=== PATIENT | male | born 1945 | race Caucasian/White ===

== ENCOUNTER 2016-09-02 08:25 | Emergency (ER) | payer MEDICARE, OTHER ==
[~2016-09-02] VITALS: Ht 188 cm; Wt 118.2 kg
[~2016-09-02 08:25] MED LIST: ASPI-973 PO; UBID100C16 PO
[2016-09-02 08:27] VITALS: BP 116/77; PULSE 106; RESP 16; O2SAT 96
--- NOTE | 2016-09-02 09:09 | ED.REPORT ---
HPI-General Illness Date of Service Sep 02, 2016 ED Provider: Malu Hdz MD A 71 year old male with a history of intestinal blockage, cataracts, and heartburn, presents to the ED complaining of abdominal pain onset last night. Pain is described as swelling and uncomfortable. Associated symptoms include acid reflux. The patient's last episode of intestinal blockage occurred approximately 3 years ago and was relieved with conservative management and no abdominal surgery. The reason for this past blockage was never discovered. Nursing Notes Stated Complaint: INTESTINAL BLOCKAGE Chief Complaint: Male Abdominal Pain Nursing Notes Reviewed: Yes Allergies: Coded Allergies: No Known Drug Allergies (Verified Allergy, Unknown, 09/02/16) Scheduled Aspirin (Aspirin) 81 Mg Tablet 81 MG PO DAILY Ubidecarenone (Coq-10) 100 Mg Capsule 100 MG PO DAILY General Time Seen by MD: 09:07 Chief Complaint Abdominal pain Hx Obtained From: Patient Arrived By: Walk-in Sudden in Onset?: Yes Onset Occurred: 1 day ago (last night) Symptom Duration: Since onset Severity: Current: Moderate Severity: Maximum: Moderate Recent Healthcare: No recent doctor visit Similar Sx Previous: Yes Past Medical History Past Medical History Hx of intestinal blockage. Last episode was approximatley 3 years ago which resolved itself with conservative management. No abdominal surgery performed and no reason for blockage discovered. The patient thinks that they had a CT at this time. high cholesterol. reflux. BPH. Heartburn. Patient takes medication for acid reflux and statin. [facility], he is at the [facility]. Patient reports having a cold three weeks ago. Denies: Diabetes mellitus Past Surgical History none reported. Smoking History Former Smoker Social History Other Social History: Good social support Ambulatory Status Independent Review of Systems Acid reflux. Denies having a cold. Full Review of Systems Constitutional: Denies: Chills, Fever Respiratory: Denies: Non-productive cough GI: Reports: Abdominal pain Complete sys rev & neg: except as marked. Physical Exam Vital Signs Vital Signs Date Time Temp Pulse Resp B/P Pulse Ox O2 Delivery O2 Flow Rate FiO2 09/02/16 08:27 36.4 106 16 116/77 96 Room Air Initial VS: Reviewed General/Constitutional: Well-developed, Well-nourished Head / Eyes: Atraumatic, Normocephalic, PERRL ENT: Mucous membranes moist, Conjunctiva normal, No scleral icterus Respiratory: Breath sounds normal, Clear to auscultation, No respiratory distress Cardiovascular: Regular rate & rhythm, Heart sounds normal, Intact distal pulses Extremities: No swelling (Well perfused. ) Skin: Warm, Dry, No cyanosis Neurologic: Alert, Oriented, Nonfocal Bowel Sounds / Distention: Positive: Distention moderate Rushes and tinkles. Hypoactive bowel tones. Interpretation & Diagnostics Lab Results Interpretation Result Diagram: 09/02/16 0945 09/02/16 0945 Test 09/02/16 09:45 White Blood Count 8.8th/mm3 (3.8-10.1) Red Blood Count 5.07mil/mm3 (4.40-5.80) Hemoglobin 13.9g/dL (13.8-17.2) Hematocrit 42.0% (41.0-50.0) Mean Corpuscular Volume 82.8fL (81-100) Mean Corpuscular Hemoglobin 27.4pg (27.0-35.0) Mean Corpuscular Hemoglobin Concent 33.1% (32.0-37.0) Red Cell Distribution Width 15.5% (12.3-15.4) Platelet Count 325bil/L (150-400) Neutrophils (%) (Auto) 53.4% (40-74) Lymphocytes (%) (Auto) 39.0% (14-46) Monocytes (%) (Auto) 5.0% (4-12) Eosinophils (%) (Auto) 2.4% (0-5) Basophils (%) (Auto) 0.1% (0-3) Hematology Comments Sodium Level 136mEq/L (134-144) Potassium Level 4.2mEq/L (3.5-5.2) Chloride Level 99mEq/L (97-108) Carbon Dioxide Level 24mmol/L (18-29) Blood Urea Nitrogen 17mg/dL (8-27) Creatinine 0.89mg/dL (0.76-1.27) Estimat Glomerular Filtration Rate 89mL/min (>59) Glucose Level 110mg/dL (60-99) Calcium Level 9.2mg/dL (8.5-10.1) Magnesium Level 2.1mg/dL (1.6-2.6) Total Bilirubin 0.4mg/dL (0.0-1.2) Aspartate Amino Transf (AST/SGOT) 27U/L (0-50) Alanine Aminotransferase (ALT/SGPT) 24U/L (0-44) Alkaline Phosphatase 55U/L (25-160) Troponin T < 0.010ug/L (0.0-0.011) Total Protein 8.0g/dL (6.4-8.4) Albumin 4.5g/dL (3.4-5.0) Lipase 41U/L (13-60) ECG Interpretation ECG Interpretation: Rate is 90. Sinus rhythm. RBBB and LAFB. No acute ischemia. Time: 10:20 Interpreted by: ED physician X-Ray Abdominal Interpretation IMPRESSION: No acute pulmonary process. No obstruction. Dictated by: Anjleica Mi M.D. on 09/02/2016 at 10:50 Approved by: Anjelica Mi M.D. on 09/02/2016 at 10:58 Interpretation / Wet Read by: Interpret - Radiologist Re-Eval/Medical Decision Source of Hx: Old records Time of Eval: 11:46 Patient Status: Condition improved Re-Evaluation/Progress Note: Rechecked patient who reports that their abdomen is feeling better, eructation but no flatulence. Patient reports that last bowel movement was yesterday morning. On re-examination, belly still has hypoactive bowel tones but is soft and nontender. Counseled Regarding: Diagnosis, Lab results, Need for follow-up, When/why to return to ED Discharge & Departure Primary Impression: Abdominal pain Ruled Out: Bowel obstruction Disposition: Home Discharge Condition All VS Reviewed: Yes Condition: Improved Additional Instructions: All of your test results were normal and the xrays show a normal gas pattern in your belly. We reviewed your belly xrays together, and there is no suggestion of acute obstruction. If you get worse, the pain comes back, or you are not passing any gas, return to the ED. There are no life threatening issues that I've identified at the moment. I am a bit concernted that you have the symptoms to begin with. Please schedule an apointment with your primary care doctor to discuss this. If you do need to return to the ED, the next step would be to get a CT scan. I am at the ED this afternoon if you need to return today. I am not sending you home with pain medication. If you are hurting more, you need to be re- evaluated. Feel free to eat something, drink a cup of coffee and go for a walk. This should help encourage peristalsis and get your gut moving a bit. Thank you for letting me help this morning. I hope you continue to feel better. Referrals: Michael Valdivia MD (PCP) Nick Attestation Portions of this note were transcribed by Carmine Green. I, Dr. Hdz personally performed the history, physical exam and medical decision-making; I reviewed and confirmed the accuracy of the information in the transcribed note. Signed by: Nick Spann, 09/02/2016 1200. copies to: Kevin Walsh MD, Shawna L MD Sep 02, 2016 09:09 Carmine Green Sep 02, 2016 09:19
[2016-09-02] MEDS ORDERED: HYDROmorphone 0.5 mg/0.5 mL iSecure Syringe IVPUSH PRN (09:25)
[2016-09-02] MEDS ORDERED: 0.9% Sodium Chloride 1,000 ML IV ONE (09:25)
[2016-09-02] MEDS ORDERED: Ondansetron 2 mg/mL 2 mL Inj IVPUSH PRN (09:25)
[2016-09-02 09:53] LABS: BASOPHILS % (AUTO) 0.1 % (0-3); EOSINOPHILS % (AUTO) 2.4 % (0-5); Mean Corpuscular Hemoglobin 27.4 pg (27.0-35.0); Mean Corpuscular Volume 82.8 fL (81-100); NEUTROPHILS % (AUTO) 53.4 % (40-74); Platelet Count 325 bil/L (150-400)
[2016-09-02 10:24] LABS: TROPONIN T < 0.010 ug/L (0.0-0.011)
[2016-09-02 10:33] LABS: Lipase 41 U/L (13-60); Magnesium 2.1 mg/dL (1.6-2.6)
--- NOTE | 2016-09-02 11:00 | DRSVH ---
PROCEDURE: X-RAY ACUTE ABDOMINAL SERIES ([id number]) INDICATIONS: bowel obstruction TECHNIQUE: One view chest and two views of the abdomen were acquired. COMPARISON: [facility], CT, ABD/PELVIS W/CON (PNL), 04/24/2013, 11:04. FINDINGS: Surgical changes and devices: None. Chest: Lungs are clear. Heart size is normal. No pleural effusions. No pneumoperitoneum. Abdomen: Bowel gas pattern is normal. No suspicious calcifications. Visualized solid organ contour s appear normal. Bones: No suspicious bony lesions. IMPRESSION: No acute pulmonary process. No obstruction. Dictated by: Anjelica Mi M.D. on 09/02/2016 at 10:50 Approved by: Anjelica Mi M.D. on 09/02/2016 at 10:58
[2016-09-02 12:16] VITALS: BP 128/79; PULSE 69; RESP 18; O2SAT 99
== END 2016-09-02 12:16 | disposition home or self-care (01) ==
LOC: SED 08:25
DX: R10.9 Unspecified abdominal pain (principal); K21.9 Gastro-esophageal reflux disease without esophagitis; Z87.891 Personal history of nicotine dependence; Z87.19 Personal history of other diseases of the digestive system; Z79.82 Long term (current) use of aspirin
CPT/HCPCS: 36415; 74022; 80053; 83690; 83735; 84484; 85025; 93005; 96361; 96374; 96375; 99285; J1170; J2405; J7030